=== PATIENT | male | born 1970 | race Caucasian/White ===

== ENCOUNTER 2023-03-11 11:22 | Outpatient (CLI) | payer BC, SELFPAY ==
--- NOTE | ~2023-03-11 | CT_ITS ---
Non-contrast CT scan of the Abdomen and Pelvis Clinical indication: Incisional hernia Technique: 2.5 mm axial scans were obtained through the abdomen and pelvis without intravenous or or al contrast. Dose reduction technique was used on this scan by utilizing automated exposure control a nd iterative reconstruction technique. The dose-length product (DLP) was 798.02 mGy-cm. Findings: Images through the lung bases reveal no abnormalities. There is no evidence of renal or ureteral calculi. The kidneys and the ureters are nondilated. The liver, spleen, pancreas, and adrenals appear normal. Small calcified gallstone present. IVC filte r present. There is no aortic aneurysm. There is no evidence of bowel obstruction. Left colonic anastomosis noted. No hernia evident. Images through the pelvis were performed. There is no evidence of ascites or lymphadenopathy. Urinary bladder unremarkable. Prostate gland and seminal vesicles are unremarkable. Impression: No hernia identified. Cholelithiasis. Reviewed, dictated and finalized at [facility]. Impression: No hernia identified. Cholelithiasis.
== END 2023-03-11 11:23 ==
PROVIDERS: PCP Surgery; Visit Provider Surgery
DX: K43.2 Incisional hernia without obstruction or gangrene (principal); K80.20 Calculus of gallbladder without cholecystitis without obstruction
CPT/HCPCS: 74176